=== PATIENT | female | born 1950 | race Caucasian/White ===

== ENCOUNTER 2020-07-06 20:51 | Emergency (ER) | payer MEDICARE, OTHER, SELFPAY ==
[2020-07-06 21:04] VITALS: BP 153/60; PULSE 95; RESP 16; TEMP 36.7; O2SAT 96; BMI 29.9
--- NOTE | 2020-07-06 21:21 | XR_ITS ---
PROCEDURE: XR TOE RT MIN 2V CLINICAL INDICATION: fall with lac COMPARISON: No exams were available for comparison FINDINGS: There is a small corner chip fracture medial base distal phalanx great toe. In addition there is spurring at the medial base of the great toe the proximal phalanx appears intact. There is mild diffuse soft tissue swelling about the distal phalanx. IMPRESSION: Degenerate spurring along with small corner chip fracture essentially nondisplaced medial base distal phalanx Dictated by: Dr. Vinay Fox MD 07/07/2020 07:27 Dr. Vinay Fox MD in [place] 07/07/2020 07:27
--- NOTE | 2020-07-06 21:26 | HMH.EDWNDL ---
ED Disposition Clinical Impression: Toe fracture, right Qualifiers: Encounter type: initial encounter Toe: great toe Fracture type: open Phalanx: distal Fracture alignment: nondisplaced Qualified Code(s): S92.424B - Nondisplaced fracture of distal phalanx of right great toe, initial encounter for open fracture Disposition: Home, Self-Care Condition on Discharge: Good Instructions: DI for Laceration Repair Additional Instructions: npo after mn wednesday and call dr crowell wednesday Prescriptions: cephALEXin [Keflex 500mg Cap] 500 mg PO TID #30 cap Transmission Status: Pending to [facility] Referrals: Lupillo Cruz [Primary Care Provider] - - Critical Care Critical Care Time: No Attestation: On 07/06/20, the high probability of a clinically significant, sudden or life threatening deterioration of the following system(s) required my full and direct attention, intervention and personal management. The time I documented below is in addition to time spent performing reported procedures but includes the following listed in this critical care notation. Medical Decision Making - Medical Records Medical records reviewed: Yes: I reviewed the patient's medical records. - Schuyler Inquiry Pt receiving controlled substance: No Vital Signs: 07/06/20 21:04 Temperature 98.1 F Temperature Source Oral Pulse Rate [Left] 95 H Respiratory Rate 16 Blood Pressure [Right Arm] 153/60 H Blood Pressure Mean [Right Arm] 91 Blood Pressure Source [Right Arm] Automatic Cuff Blood Pressure Position [Right Arm] Sitting 02 Sat by Pulse Oximetry 96 Oxygen Delivery Method Room Air Orders (Tests/Meds): ED MEDICATIONS Generic Name Dose Route Start Last Admin Trade Name Freq PRN Reason Stop Dose Admin Ceftriaxone Sodium 1 gm/ 50 mls @ 100 mls/hr 07/06/20 22:15 07/06/20 22:10 Sodium Chloride IV 07/20/20 22:14 100 mls/hr Q24H ANISA Administration Protocol Discontinued Medications Generic Name Dose Route Start Last Admin Trade Name Freq PRN Reason Stop Dose Admin Acetaminophen/Codeine Phosphate 1 amna 07/06/20 22:23 Acetaminophen 300mg W/Codeine 30mg Take Home Pack (6) PO 07/06/20 22:24 ONCE ONE Tetanus/Diphtheria Toxoids 0.5 ml 07/06/20 21:14 07/06/20 21:16 Tetanus-Diphth Toxoid, Adult 0.5ml Syr IM 07/06/20 21:15 0.5 ml .ONCE ONE Administration ORDERS Category Date Time Status CT foot RT wo con Stat Cat Scan 07/06/20 21:34 Taken XR toe RT min 2V Stat Exams 07/06/20 21:21 Taken - Radiology Data #1 Image(s): Foot/Toes Image Reviewed: Yes I reviewed the patient's radiology image Preliminary Findings: Abnormal (fx seen ) - CT Data CT Scan: Other (toe) Time Received: 22:[address] Reviewed: Yes: I have viewed the radiologist's interpretation Preliminary Findings: Abnormal (see report ) Wound/Laceration HPI - General Chief Complaint: Wound/Laceration Stated Complaint: AO [id number] @2030 Lac to R big toe Time Seen by Provider: 07/06/20 21:15 Mode of Arrival: Wheelchair Source of Information: Patient, Spouse, Medical Record Limitations: No Limitations Description of Symptoms (Recalled from ER Triage Doc. by RN): Pt states she caught toe on her steps and has a lac to the right great toe, toe nail is involved, bleeding controlled - History of Present Illness HPI narrative: acute injury/lac to rt great toe this pm Onset (ago): hour(s) Extremity Location: Right: foot Place: home Patient tetanus UTD: No Context: accidental Associated symptoms: none - Related Data Home Medications Medication Instructions Recorded Confirmed amitriptyline 150 mg tablet 150 mg PO QHS 08/06/18 07/06/20 amlodipine 10 mg tablet 10 mg PO DAILY 08/06/18 07/06/20 levocetirizine 5 mg tablet 5 mg PO QHS 08/06/18 07/06/20 pravastatin 40 mg tablet 40 mg PO DAILY 08/06/18 07/06/20 sertraline 100 mg tablet 100 mg PO DAILY 08/06/18 07/06/20 Previous Rx's Medication Instructions Rec
--- NOTE | 2020-07-06 21:34 | CT_ITS ---
PROCEDURE: CT FOOT RT WO CON CLINICAL HISTORY: open fx pt fell. has laceration to right great toe, injury with pain COMPARISON: CR XR TOE RT MIN 2V from 07/06/2020 TECHNIQUE: Axial images obtained with sagittal and coronal reformats. All CT scans at the facility use one or more dose reduction, viz: automated exposure control, ma/kV adjustment per patient size (including targeted exams where dose is matched to indication, i.e. head), or iterative reconstruction technique. FINDINGS: There is diffuse subcutaneous soft tissue swelling extending from the 1st metatarsophalangeal junction to the distal aspect of the great toe. A minimally displaced fracture involves the dorsal and proximal aspect of the distal phalanx of the great toe. The fracture line is somewhat blurred. The fracture extends into the articular surface at the interphalangeal joint. There is overlying soft tissue swelling. In addition, there is a nondisplaced fracture involving the lateral margin of the proximal aspect of the distal phalanx at the great toe. Fracture line is also somewhat blurred. There is some minimal soft tissue calcification at this area as well. There are osteoarthritic changes. A small cutaneous blister is present along the plantar aspect of the foot at the 1st metatarsal phalangeal junction. Fluid density is also present along the plantar aspect of the foot in the subcutaneous tissues superficial to the tendons at the 1st metatarsophalangeal junction. Cannot exclude the possibility of developing abscess. Consider MRI for further evaluation. Increased soft tissue density is present deep to the nail bed of the great toe. An additional blisters present along distal aspect of the great toe laterally. There are osteoarthritic changes noted. IMPRESSION: 1. There is a minimally displaced fracture involving the dorsal and proximal aspect of the great toe extending into the articular surface at the interphalangeal joint with an additional fracture along the lateral base of the distal phalanx of the great toe. The fracture lines are somewhat blurred. Cannot exclude the possibility of superimposed osteomyelitis. 2. Findings consistent with cellulitis and osteoarthritis Dictated by: Gaurang Davis MD 07/07/2020 07:55 Gaurang Davis MD in [place] 07/07/2020 07:55
--- NOTE | 2020-07-06 22:03 | PC.NURSE ---
Rocephin given for prophylaxis due to open fracture.
[2020-07-06 22:50] VITALS: BP 148/56; PULSE 84; RESP 16; TEMP 36.7; O2SAT 98
--- NOTE | 2020-07-06 22:55 | PC.NURSE ---
Post-op shoe placed after dressing
--- NOTE | 2020-07-08 06:57 | PC.NURSE ---
dr. valdivia spoke with dr crowell this morning about patient ad the possibility of her calling to day to be seen.
== END 2020-07-06 22:55 | disposition home or self-care (01) ==
PROVIDERS: Emergency Provider Emergency Medicine; PCP Pediatrics
DX: S92.424B Nondisplaced fracture of distal phalanx of right great toe, initial encounter for open fracture (principal); S91.211A Laceration without foreign body of right great toe with damage to nail, initial encounter; W23.1XXA Caught, crushed, jammed, or pinched between stationary objects, initial encounter; Y92.019 Unspecified place in single-family (private) house as the place of occurrence of the external cause; I10 Essential (primary) hypertension; E78.5 Hyperlipidemia, unspecified
CPT/HCPCS: 12001; 29515; 73660; 73700; 90471; 90714; 96365; 99283

== ENCOUNTER 2021-10-12 12:11 | Emergency (ER) | payer MEDICARE, SELFPAY ==
[2021-10-12 12:30] VITALS: BP 144/71; PULSE 91; RESP 18; TEMP 36.6; O2SAT 98; BMI 30.2
--- NOTE | 2021-10-12 13:48 | HMH.EDUTC ---
[facility] Disposition Clinical Impression: COVID-19 virus test result unknown, Sore throat Disposition: Home, Self-Care Condition on Discharge: Good Instructions: DI for COVID-19 (Suspected or Confirmed ) Additional Instructions: covid swab was sent to lab, call tomorrow for results. self isolate until test results are known to be negative No sign of a bacterial infection. Likely viral. Viruses can take 7-14 days to run their course. Nasal saline and bulb syringe or nose Janie to remove nasal drainage to help with nasal congestion. Hard to eat, drink, sleep with nasal congestion so important to keep this cleaned out. Monitor temp. Tylenol or Motrin as needed for pain or fever Encourage fluids, water, Gatorade, Powerade, Pedialyte if /toddler/child Warm salt water gargles Warm fluids Sore throat lozenges Sleep elevated Humidifier/vaporizer Follow-up immediately for new or worsening symptoms or no noticeable improvement over the next 48-72 hours. Referrals: Lupillo Cruz [Primary Care Provider] - Time of Disposition: 13:50 Medical Decision Making - Schuyler Inquiry Pt receiving controlled substance: No Vital Signs: 10/12/21 12:30 Temperature 97.9 F Temperature Source Oral Pulse Rate [Right Brachial] 91 H Respiratory Rate 18 Blood Pressure [Right Arm] 144/71 H Blood Pressure Mean [Right Arm] 95 Blood Pressure Source [Right Arm] Automatic Cuff Blood Pressure Position [Right Arm] Sitting 02 Sat by Pulse Oximetry 98 Oxygen Delivery Method Room Air Orders (Tests/Meds): ORDERS Category Date Time Status Covid-19 Nasal PCR ([facility]) Routine Lab 10/12/21 12:36 Received [facility] HPI - General Chief complaint: Urgent [facility] Stated complaint: covid exposure, sore throat, covid test Time Seen by Provider: 10/12/21 13:48 Mode of Arrival: Ambulatory Source of Information: Patient Limitations: No Limitations Description of Symptoms (Recalled from Triage Doc. by RN): PATIENT C/O SCRATCHY THROAT. SHE STATES SHE WANTS A COVID TEST D/T FLYING OUT TOMORROW HEENT Symptoms (Recalled from RN notes): Yes Resp Symptoms (Recalled from RN notes): No Skin Symptoms (Recalled from RN notes): No MS Symptoms (Recalled from RN notes): No Functional Status (Recalled from RN notes): WNL - History of Present Illness Provider Complaint: 71 yr old female presents for sore throat and covid exposer. - Related Data Home Medications Medication Instructions Recorded Confirmed amitriptyline 150 mg tablet 150 mg PO QHS 08/06/18 07/06/20 amlodipine 10 mg tablet 10 mg PO DAILY 08/06/18 07/06/20 levocetirizine 5 mg tablet 5 mg PO QHS 08/06/18 07/06/20 pravastatin 40 mg tablet 40 mg PO DAILY 08/06/18 07/06/20 sertraline 100 mg tablet 100 mg PO DAILY 08/06/18 07/06/20 Previous Rx's Medication Instructions Recorded cephALEXin [Keflex 500mg Cap] 500 mg PO TID #30 cap 07/06/20 Allergies Allergy/AdvReac Type Severity Reaction Status Date / Time No Known Allergies Allergy Verified 08/06/18 15:42 - Worker's Comp Is this a Worker's Comp case?: No [facility] History - Hepatitis A Screen Drug use history?: No High risk sexual behaviors?: No History of sexually transmitted infection?: No Currently employed?: No Childcare worker?: No Do you have indoor plumbing?: Yes Do you have electricity?: Yes Attestation statement:: This patient has been screened for Hepatitis A risk factors. I have reviewed the patient's past medical history: Yes Medical History: Reports:: Hyperlipidemia, Hypertension Denies:: Diabetes Mellitus Type 1, Diabetes Mellitus Type 2 Other Medical History: Reports: Thyroid Disease Laterality Cases: Bilateral: Myringotomy (Ear Tubes) - Social History Smoking Status: Never smoker Alcohol Intake: never Alcohol Intake Frequency:: 0-2 drinks per day Substance Use Type: denies use Occupational Status: retired Housing: house Household Members: family Family Hx:: No significant family history ROS
[2021-10-12 13:52] VITALS: BP 144/71; PULSE 91; RESP 18; TEMP 36.6; O2SAT 98
== END 2021-10-12 13:55 | disposition home or self-care (01) ==
PROVIDERS: Emergency Provider Nurse Practitioner Family; PCP Pediatrics
DX: Z20.822 Contact with and (suspected) exposure to COVID-19 (principal); J02.9 Acute pharyngitis, unspecified; I10 Essential (primary) hypertension; E78.5 Hyperlipidemia, unspecified; Z79.899 Other long term (current) drug therapy
CPT/HCPCS: G0463; 99202; C9803; U0003; U0005

== ENCOUNTER 2023-08-21 12:05 | Emergency (ER) | payer MEDICARE, SELFPAY ==
--- NOTE | 2023-08-21 12:34 | EXP.UTC ---
Discharge Plan Disposition Patient Disposition: Home, Self-Care Condition: Good Prescriptions Prescriptions: New cyclobenzaprine 10 mg Tablet 10 mg PO BID PRN (Reason: Muscle Spasm) Qty: 20 0RF methylprednisolone 4 mg Tablets,Dose Pack 4 mg PO DIRECTED Qty: 21 0RF No Action amitriptyline 150 mg tablet 150 mg PO QHS pravastatin 40 mg tablet 40 mg PO DAILY sertraline 100 mg tablet 100 mg PO DAILY amlodipine 10 mg tablet 10 mg PO DAILY levocetirizine [Xyzal] 5 mg tablet 5 mg PO QHS levothyroxine [Synthroid] 150 mcg tablet 150 mcg PO DAILY Referrals Follow up/Referrals: Lupillo Cruz [Primary Care Provider] - See instructions Activity Restrictions/Add. Instructions Additional Instructions/Restrictions: Go home and rest. It would be best if you rested tomorrow too. No heavy lifting. No twisting. Take the oral medications as directed. The muscle relaxer (cyclobenzaprine--Flexeril) will make you drowsy, so don't drive or operate heavy machinery after taking it. BE VERY CAREFUL AND DO NOT FALL AFTER TAKING THIS MEDICATION. Don't start the oral steroids (medrol dose pack) until tomorrow, since you had the shots in here today. Follow up with your regular doctor. GO TO THE ER FOR ANY WORSENING SYMPTOMS OR CONCERN, ESPECIALLY BOWEL OR BLADDER ISSUES, SADDLE AREA NUMBNESS, FEVER, ETC Clinical Impressions Clinical Impression: Torticollis Instructions Patient Instructions: ERIS Lopez for Torticollis Discharge ED Provider: Vincenzo Moreno [facility] General Stated complaint: bilateral shoulder pain, no accident Time Seen by Provider: 08/21/23 12:34 History of Present Illness Provider Complaint: She c/o bilateral shoulder pain and posterior neck pain for the past 2 days. She denies any injury. She denies any chest pain. Related Data Home Medications Medication Instructions Recorded Confirmed amitriptyline 150 mg tablet 150 mg PO QHS Insomnia 08/06/18 08/21/23 amlodipine 10 mg tablet 10 mg PO DAILY High blood pressure 08/06/18 08/21/23 levocetirizine 5 mg tablet (Xyzal) 5 mg PO QHS thyroid 08/06/18 08/21/23 pravastatin 40 mg tablet 40 mg PO DAILY Cholesterol 08/06/18 08/21/23 sertraline 100 mg tablet 100 mg PO DAILY Depression 08/06/18 08/21/23 levothyroxine 150 mcg tablet 150 mcg PO DAILY 08/21/23 08/21/23 (Synthroid) Previous Rx's Medication Instructions Recorded cyclobenzaprine 10 mg tablet 10 mg PO BID PRN Muscle Spasm #20 08/21/23 tabs methylprednisolone 4 mg tablets in 4 mg PO DIRECTED #21 tabs 08/21/23 a dose pack Allergies Allergy/AdvReac Type Severity Reaction Status Date / Time No Known Allergies Allergy Verified 08/06/18 15:42 [facility] Disclaimer: The information contained in this section may have been updated after the patient was seen, as this information can be updated by other users. Medical History (Updated 08/21/23 @ 13:01 by Vincenzo Moreno APRN) Hyperlipidemia Hypertension Thyroid disease Urinary tract infection Surgical History (Updated 08/21/23 @ 12:38 by Lanie Moncada RN) History of tympanostomy tube placement Social History Smoking Status: Never smoker alcohol intake: never substance use type: denies use current occupational status: retired Travel in the last 8 weeks: None household members: family housing: house ROS Obtained: Yes All systems reviewed & no additional complaints except as documented Constitutional Constitutional: Denies chills and Denies fever(s) Eyes Eyes: Denies eye discharge ENT Ears, Nose, Mouth, and Throat: Denies dizziness, Denies otalgia, Reports neck pain and Denies sore throat Cardiovascular Cardiovascular: Denies chest pain Respiratory Respiratory: Denies shortness of breath, Denies chest congestion, Denies cough, Denies stridor and Denies wheezing Gastrointestinal Gastrointestingal: Denies nausea or vomiting Musculoskelet
[2023-08-21 12:35] VITALS: BP 127/85; PULSE 89; RESP 22; TEMP 36.7; O2SAT 98; BMI 30.4
[2023-08-21 13:15] VITALS: BP 127/85; PULSE 89; RESP 22; TEMP 36.7; O2SAT 98
== END 2023-08-21 13:19 | disposition home or self-care (01) ==
PROVIDERS: Emergency Provider Nurse Practitioner Family; PCP Pediatrics
DX: M43.6 Torticollis (principal); M54.2 Cervicalgia; M25.511 Pain in right shoulder; M25.512 Pain in left shoulder; E03.9 Hypothyroidism, unspecified; E78.5 Hyperlipidemia, unspecified; I10 Essential (primary) hypertension
CPT/HCPCS: 96372; 99212; 99214; G0463

== ENCOUNTER 2024-07-29 12:43 | Emergency (ER) | payer MEDICARE, SELFPAY ==
[2024-07-29 13:35] VITALS: BP 153/90; PULSE 87; RESP 20; TEMP 36.3; O2SAT 98; BMI 30.4
[2024-07-29 14:03] LABS: UTC Strep Screen (Rapid) Negative (Negative)
--- NOTE | 2024-07-29 14:04 | EXP.UTC ---
Discharge Plan Disposition Patient Disposition: Home, Self-Care Condition: Good Prescriptions Prescriptions: New fluticasone propionate [Flonase Allergy Relief] 50 mcg/actuation spray,suspension 2 spray intranasal DAILY Qty: 16 0RF Rx Instructions: administer into each nostril benzonatate 100 mg capsule 100 mg PO TID PRN (Reason: cough) Qty: 30 0RF No Action pravastatin 40 mg tablet 40 mg PO DAILY amlodipine 10 mg tablet 10 mg PO DAILY cyclobenzaprine 10 mg tablet 10 mg PO DAILY amitriptyline 150 mg tablet 150 mg PO DAILY montelukast 10 mg tablet 10 mg PO DAILY levothyroxine [Synthroid] 150 mcg tablet 150 mcg PO DAILY Referrals Follow up/Referrals: Lupillo Cruz [Primary Care Provider] - See instructions Activity Restrictions/Add. Instructions Additional Instructions/Restrictions: *Monitor Temp, Over the counter Motrin or Tylenol as directed/as needed Tylenol every 4 hours and Motrin every 6 hours (as long as your family doctor has told you that you can take it) for fever or pain. and straight to ER if unable to lower temp less than 101.0 after medication given *Warm salt water gargles may help to soothe the throat *Throat Lozenges? *Warm fluids like tea with honey may help to soothe the throat? *Sleep elevated *Humidifier/Vaporizer *Flonase 2 sprays in each nostril daily but be aware that it may take 2-3 days before you notice improvement *Your throat swab was sent for culture. Those results are typically sent to your primary care. Be sure to follow up in 2-3 days with your family doctor/primary care physician if no improvement so they can review those result and treat if necessary. If you don?t have a primary care doctor, I recommend you get one but in the mean time, you will have to return to a walk in clinic Follow up IMMEDIATELY for new or worsening symptoms or no Noticeable improvement over the next 48-72 hours. 911 for difficulty breathing or swallowing You were tested for today for ?Flu/ COVID19 your test result should be back in the next 24hours, you may check your results on the [facility] [employer] [facility] Portal Clinical Impressions Clinical Impression: Viral upper respiratory tract infection with cough Instructions Patient Instructions: Cough, DI for Nasal Congestion, Sore Throat Print Language Print Language: [place] Island[place] Discharge ED Provider: Shira Bruno [facility] General Stated complaint: cough,[place], sore throat and congetsion Mode of Arrival: Ambulatory Source of Information: Patient Limitations: No Limitations Time Seen by Provider: 07/29/24 14:04 Description of Symptoms (Recalled from Triage Doc. by RN): PATIENT C/O SORE THROAT, SINUS DRAINAGE, FEELING TIRED, AND COUGH SINCE YESTERDAY HEENT Symptoms (Recalled from RN notes): Yes Resp Symptoms (Recalled from RN notes): Yes Skin Symptoms (Recalled from RN notes): No MS Symptoms (Recalled from RN notes): No Functional Status (Recalled from RN notes): WNL History of Present Illness Provider Complaint: Patient states that she started feeling bad yesterday having sinus drainage, sore throat, feeling achy and cough States she wasnt sure if it was her allergies or if she may have strep throat or COVID so she came in to get checked Related Data Home Medications ?Medication ?Instructions ?Recorded ?Confirmed amlodipine 10 mg tablet 10 mg PO DAILY High blood pressure 08/06/18 07/29/24 pravastatin 40 mg tablet 40 mg PO DAILY Cholesterol 08/06/18 07/29/24 levothyroxine 150 mcg tablet 150 mcg PO DAILY 08/21/23 07/29/24 (Synthroid) amitriptyline 150 mg tablet 150 mg PO DAILY 07/29/24 07/29/24 cyclobenzaprine 10 mg tablet 10 mg PO DAILY 07/29/24 07/29/24 montelukast 10 mg tablet 10 mg PO DAILY 07/29/24 07/29/24 Previous Rx's ?Medication ?Instructions ?Recorded benzonatate 100 mg capsule 100 mg PO TID PRN cough #30 caps 07/29/24 fluticasone propionate 50 2 spray intranasal DAILY #16 grams 07/29/24 mcg/actuation nasal spray,suspension (Flonase Allergy Relief) Allergies Allergy/AdvReac Type Severity Reaction Status Date / Time No Known Allergies Allergy Verified 08/06/18 15:42 Worker's Comp Is this a Worker's Comp case?: No [facility] Disclaimer: The information contained in this section may have been updated after the patient was seen, as this information can be updated by other users. Medical History (Updated 07/29/24 @ 14:11 by Shira Bruno APRN) Thyroid disease Urinary tract infection Hyperlipidemia Hypertension Surgical History (Updated 08/21/23 @ 12:38 by Lanie Moncada RN) History of tympanostomy tube placement Social History Smoking Status: Never smoker alcohol intake: never substance use type: denies use current occupational status: retired Travel in the last 8 weeks: None household members: family housing: house ROS Obtained: Yes All systems reviewed & no additional complaints except as documented and Yes Systems reviewed as appropriate & no additional complaints except as documented Constitutional Constitutional: Reports system reviewed and no additional complaints, except as documented, Reports as per HPI and Reports body ache ENT Ears, Nose, Mouth, and Throat: Reports system reviewed and no additional complaints, except as documented, Reports as per HPI, Reports nasal congestion, Reports nasal discharge and Reports sore throat Cardiovascular Cardiovascular: Reports system reviewed and no additional complaints, except as documented and Reports as per HPI Respiratory Respiratory: Reports system reviewed and no additional complaints, except as documented, Reports as per HPI, Denies shortness of breath, Reports cough and Denies pain with cough Physical Exam General General appearance: alert and in no apparent distress ENT ENT exam: Present mucous membranes moist Expanded ENT Exam Nose exam: Present other (clear drainage) Throat exam: Present other (Mild pharyngeal erythema noted with PND) Chest Chest inspection: Present normal inspection and symmetric chest wall rise Respiratory Respiratory exam: Present normal lung sounds bilaterally; Absent respiratory distress or wheezes Cardiovascular Cardiovascular exam: Present regular rate, normal rhythm and normal heart sounds Neurological Exam Neurological exam: Present alert, oriented X3 and normal gait Medical Decision Making Medical Records Screening: Per USPSTF and CDC recommendations, given the prevalence of disease in our region, it is our hospital?s policy to screen for HIV and viral Hepatitis for all patients aged 18 and over and those with ongoing risk factors. Schuyler Inquiry Pt receiving controlled substance: No Schuyler was queried for this patient: No Vital Signs: 07/29/24 13:35 Temperature 97.4 F L Temperature Source Oral Pulse Rate [Left Brachial] 87 Respiratory Rate 20 Blood Pressure [Left Arm] 153/90 H Blood Pressure Mean [Left Arm] 111 Blood Pressure Source [Left Arm] Automatic Cuff Blood Pressure Position [Left Arm] Sitting 02 Sat by Pulse Oximetry 98 Oxygen Delivery Method Room Air Lab Data Lab results reviewed: Yes I reviewed the patient's lab results. Lab Results 07/29/24 13:28: Strep Scn Rapid Clinic Negative Orders (Tests/Meds): ORDERS Category Date Time Status Strep Screen Confirmation Stat Micro 07/29/24 13:28 Received
[2024-07-29 14:13] VITALS: BP 153/90; PULSE 87; RESP 20; TEMP 36.3; O2SAT 98
[2024-07-29 14:28] LABS: Coronavirus 19, PCR Not Detected (NotDetected); Influenza A, PCR Not Detected (NotDetected); Influenza B, PCR Not Detected (NotDetected)
== END 2024-07-29 14:17 | disposition home or self-care (01) ==
PROVIDERS: Emergency Provider Nurse Practitioner; PCP Pediatrics
DX: J06.9 Acute upper respiratory infection, unspecified (principal)
CPT/HCPCS: 87636; 87880; 99213; G0381